=== PATIENT | female | born 1955 | race Caucasian/White ===

== ENCOUNTER 2016-11-13 02:00 | Inpatient (IN) ==
[2016-11-13 02:58] LABS: MANUAL DIFF NEEDED? NO; URINE CULTURE NEEDED? NO; URINE MICRO REVIEW NEEDED? NO; URINE SOURCE CLEAN CATCH
[2016-11-13 03:00] LABS: BASO% 0.2 % (0.0-0.8); EOS# 0.02 X1000 (0.0-0.7); EOS% 0.2 % (0.0-10.0); HEMATOCRIT 41.4 % (37.0-47.0); HEMOGLOBIN 14.1 g/dL (12.0-16.0); IMM GRAN# 0.02 X1000 (0.0-0.04); IMM GRAN% 0.2 % (0.0-0.5); LYMPH# 2.08 X1000 (1.2-3.4); LYMPH% 16.4 % (20.5-51.1); MCH 31.4 PG (27-31); MCHC 34.1 g/dL (33-37); MCV 92.2 FL (81-99); MONO# 1.62 X1000 (0.11-0.59); MONO% 12.8 % (1.7-9.3); MPV 9.6 FL (7.4-10.4); NEUT% 70.2 % (42.2-75.2); PLT 350 X1000 (130-400); RBC 4.49 XMIL (4.2-5.4)
[2016-11-13 03:02] LABS: BILIRUBIN URINE NEGATIVE (NEGATIVE); BLOOD URINE NEGATIVE (NEGATIVE); COLOR YELLOW; GLUCOSE URINE NEGATIVE (NEGATIVE); LEUKOCYTES URINE NEGATIVE (NEGATIVE); NITRITE URINE NEGATIVE (NEGATIVE); PROTEIN URINE NEGATIVE (NEGATIVE); SP GRAVITY URINE 1.015; TURBIDITY URINE CLEAR (CLEAR); UROBILINOGEN URINE NORMAL (NORMAL)
[2016-11-13 03:03] LABS: UR EPITHELIAL CELLS <10 /HPF (<10); URINE BACTERIA NEGATIVE /HPF; URINE RBC <10 /HPF (<10); URINE WBC <10 /HPF (<10)
[2016-11-13 03:19] LABS: AGAP 15; ALBUMIN 3.8 g/dL (3.5-5.0); ALKALINE PHOSPHATASE 81 U/L (32-104); AMYLASE 40 U/L (20-200); BUN 12 mg/dL (8-22); CALCIUM 9.5 mg/dL (8.8-10.2); CHLORIDE 98 mmol/L (98-107); COSMO 276; GOT 32 U/L (10-30); GPT 19 U/L (10-36); LIPASE 26 U/L (13-60); POTASSIUM 4.5 mmol/L (3.5-5.1); SODIUM 138 mmol/L (136-145); TCO2 25 mmol/L (25-35); TOTAL PROTEIN 7.5 g/dL (6.3-8.3)
[2016-11-13] MEDS ORDERED: MORPHINE IV ONE ×2 (03:47→06:30)
[2016-11-13] MEDS ORDERED: NS 1,000 ML IV SCH (03:47)
[2016-11-13] MEDS: ZOFRAN IV ONE (04:07)
[2016-11-13] MEDS ORDERED: NS 1,000 ML IV ONE ×2 (04:34→04:36)
--- NOTE | 2016-11-13 04:40 | PROVIDER DOCUMENTATION ---
HPI-Abdominal Pain/GI Problem - General Chief Complaint: Abdominal Pain Stated Complaint: ABD/FLANK PAIN Time Seen by Provider: 11/13/16 02:59 Source: patient Allergies/Adverse Reactions: Patient Allergies Allergy/AdvReac Type Severity Reaction Status Date / Time metoclopramide HCl * AdvReac Unknown Verified 11/13/16 02:56 [From Reglan] promethazine HCl * AdvReac Unknown Verified 11/13/16 02:56 [From Phenergan] Home Medications: Home Medication List Medication Instructions Recorded Confirmed Last Taken Type Sucralfate [Carafate] 1 gm PO BID 09/10/15 11/13/16 11/12/16 History Hydrochlorothiazide 12.5 mg PO DAILY 11/13/16 11/13/16 11/12/16 History - History of Present Illness-ABD Nature of Presenting Problems: 61 yo WF was brought to ER by family with left and right lower abdominal pain. She has a history of bowel problems including including a best I can volvulus as best I can tell. She also reports issues of malnutrition. Abdominal Pain Onset Location: reports: RLQ, LLQ Quality of Pain: reports: sharp Severity in ED: reports: moderate Onset/Duration: reports: 24 hours ago Timing: reports: still present Activities at Onset: reports: light activity Modifying Factors: improves with: nothing Associated Symptoms: reports: fever/chills, loss of appetite Last BM: unsure # of Diarrhea Episodes: 0 Rectal Pain: reports: none # of Vomiting Episodes: 0 Bruising or Bleeding Gums?: No Similar Symptoms Previously?: No Recently seen or treated by another doctor?: No Review of Systems - Adult - REVIEW OF SYSTEMS - ADULT Constitutional: reports: see HPI, chills, weight loss Eyes: reports: no symptoms reported Ears, Nose, Mouth & Throat: reports: no symptoms reported Cardiovascular: reports: no symptoms reported Respiratory: reports: chronic cough, dyspnea on exertion Gastrointestinal: reports: see HPI Genitourinary: reports: no symptoms reported Musculoskeletal: reports: no symptoms reported Integumentary: reports: no symptoms reported Neurological: reports: no symptoms reported Psychiatric: reports: no symptoms reported Endocrine: reports: no symptoms reported Hematologic/Lymphatic: reports: no symptoms reported Past History - Adult - PAST MEDICAL HISTORY-ADULT Review of Records: reports: Old Records Reviewed, Nursing Assessment Review, Medications Reviewed Major Childhood Illnesses: reports: denies history Cardiovascular: reports: palpitations (SVT's and PVC's) Respiratory: reports: denies history Gastrointestinal: reports: other (gastroparesis) Obstetrical/Gynecological: reports: denies history Genitourinary: reports: denies history Musculoskeletal: reports: neck/back injury Neurological: reports: denies history Psychiatric: reports: other (ADHD) Endocrine/Immune: reports: denies history Other Conditions: reports: denies history - PRIOR SURGERIES/PROCEDURES Surgical/Procedure History: reports: cholecystectomy, hysterectomy, bowel surgery, other (rhinoplasty) - IMMUNIZATION STATUS Childhood Immunizations: NUTD Flu Vaccine: NUTD - FAMILY HISTORY Family History: reviewed, not pertinent Physical Exam-General - PHYSICAL EXAM-ADULT Initial Vital Signs Reviewed: Yes - CONSTITUTIONAL General Appearance: mild distress - EYES Eyes: PERRL/EOMI, pale conjunctivae - HEAD, EARS, NOSE, MOUTH & THROAT HENMT: normocephalic/atraumatic, moist mucous membranes - NECK Neck: non-tender, full range of motion - RESPIRATORY Respiratory: chest non-tender, lungs clear, normal breath sounds - CARDIOVASCULAR Cardiovascular: normal peripheral pulses, regular rate, rhythm, no edema, no gallop, no murmur - GASTROINTESTINAL (ABDOMEN) Abdominal Exam: normal bowel sounds, guarding, tenderness - LYMPHATIC Lymphatic: no adenopathy - MUSCULOSKELETAL Back Exam: normal inspection Extremity: non-tender Peripheral Pulses: radial (R): 3+, radial (L): 3+ - SKIN Integumentary: normal color, normal turgor - NEUROLOGIC Neurologic: grossly normal - PSYCHIATRIC Psych/Mental Status: normal mood/affect Progress - PLAN OF CARE/RESULTS Progress/Plan/Lab Results: Vital Signs - 8 hr 11/13/16 02:03 Temperature 98.2 F Pulse Rate 104 H Respiratory Rate 22 Blood Pressure 141/77 O2 Sat by Pulse Oximetry 98 Laboratory Results - last 24 hr 11/13/16 11/13/16 11/13/16 02:45 02:45 02:45 WBC 12.70 H RBC 4.49 Hgb 14.1 Hct 41.4 MCV 92.2 MCH 31.4 H MCHC 34.1 RDW Std Deviation 12.8 Plt Count 350 MPV 9.6 Immature Gran % (Auto) 0.2 Neut % (Auto) 70.2 Lymph % (Auto) 16.4 L Major % (Auto) 12.8 H Eos % (Auto) 0.2 Baso % (Auto) 0.2 Immature Gran # (Auto) 0.02 Neut # (Auto) 8.93 H Lymph # (Auto) 2.08 Major # (Auto) 1.62 H Eos # (Auto) 0.02 Baso # (Auto) 0.03 Sodium 138 Potassium 4.5 Chloride 98 Carbon Dioxide 25 Anion Gap 15 BUN 12 Creatinine 0.8 Estimated GFR/1.73 m2 > 60 BUN/Creatinine Ratio 15 Glucose 109 H Calculated Osmolality 276 Calcium 9.5 Total Bilirubin 1.10 H AST 32 H ALT 19 Alkaline Phosphatase 81 Total Protein 7.5 Albumin 3.8 Globulin 3.7 Albumin/Globulin Ratio 1.0 Amylase 40 Lipase 26 Urine Source CLEAN CATCH Urine Color YELLOW Urine Turbidity CLEAR Urine pH 7.0 Ur Specific [place] 1.015 Urine Protein NEGATIVE Ur Glucose (Stick) NEGATIVE Ur Ketones (Stick) NEGATIVE Urine Blood NEGATIVE Urine Nitrite NEGATIVE Urine Bilirubin NEGATIVE Urobilinogen Dipstick NORMAL Urine Leukocytes NEGATIVE Urine WBC (Auto) <10 Urine RBC (Auto) <10 U Epithel Cells (Auto) <10 Urine Bacteria (Auto) NEGATIVE Orders Category Date Time Status Saline Loc DIRECTED Care 11/13/16 02:14 Active NPO Diet 11/13/16 02:[address] ABD/PELVIS W/ IV CONT ONLY [CT] Stat Exams 11/13/16 03:46 Taken AMYLASE [CHEM] Stat Lab 11/13/16 02:45 Completed CBC WITH ELECTRONIC DIFF [HEME] Stat Lab 11/13/16 02:45 Completed COMPREHENSIVE METABOLIC PANEL [CHEM] Stat Lab 11/13/16 02:45 Completed LIPASE [CHEM] Stat Lab 11/13/16 02:45 Completed URINALYSIS W/POSS RFLX CULT [URINALYSIS] Stat Lab 11/13/16 02:45 Completed 0.9% Sodium Chloride Inj [Ns] 1,000 ml Med 11/13/16 03:47 Discontinued IV 150 mls/hr Morphine Med 11/13/16 03:47 Discontinued 4 mg IV NOW ONE Ondansetron [Zofran] Med 11/13/16 03:48 Discontinued 8 mg IV NOW ONE Result Diagrams: 11/13/16 02:45 11/13/16 02:45 - XRAY 1 XRAY Study: Chest Impression: Normal - CT/MRI 1 Impression: Abnormal, See EMR Report (Diverticulitis) - CONSULTS/PCP/HOSPITALIST Notification #1 *Consult/PCP/Hospitalist*: Dr [email or web address] Time Discussed: 05:30 Reason/Comments: Defer admission to the day shift Departure - Departure Time of Disposition Decision: 06:02 DIAGNOSIS: Diverticulitis large intestine w/o perforation or abscess w/o bleeding Disposition: ADMITTED INPATIENT 09 Certified Medical Emergency: Emergent Condition: Fair Referrals and Follow-Ups: Zi Bob MD [Primary Care Provider] - - Critical Care Note Total Time (mins): 30 Critical Care Statement: This patient required my direct personal management to treat or rule out processes, the absence of which, could potentiallly result in sudden, clinically significant life or limb threatening deterioration.
[2016-11-13] MEDS: FLAGYL 500 MG/NS 500 MG/100 ML IVPB IV SCH ×4 (07:23→20:22)
[2016-11-13] MEDS: ZOSYN 3.375 GM/NS 3.375 GM/50 ML IVPB IV SCH ×5 (08:34→17:44)
--- NOTE | 2016-11-13 09:23 | HISTORY AND PHYSICAL ---
HISTORY OF PRESENT ILLNESS: She stated that she has had pain in the right side now for the last 2 days. Yesterday, it was getting more intense and finally she came to the emergency room about 2:30 this morning. She has had fever and chills and a lot of abdominal cramping. PAST HISTORY: She has an extensive history including 1. History of migraines. 2. Restless leg syndrome. 3. Gastroparesis. 4. Gastroesophageal reflux. 5. Fibromyalgia. 6. Hyperactivity disorder. 7. She has supraventricular tachycardia, and it has usually been related to when her electrolytes were off by her report. PAST SURGICAL HISTORY: 1. She has had Sujata fundoplication. The first one was done, I think, by Dr. Deyvi Valadez. I think it had to be redone and then she had gastroparesis. It is my understanding that she had some partial gastrectomy; I am not sure about that. 2. Heart catheterization in 2013. Normal coronaries. 3. Cholecystectomy. 4. Bowel obstruction, status post exploratory laparotomy, release of small bowel obstruction. This was done by Dr. Timmy Lr. 5. Hysterectomy. 6. Bilateral oophorectomy. 7. Hormone replacement. MEDICATIONS: 1. Mediplex 0.5 mg a day. 2. Premarin 0.625 mg a day. 3. 36 mg a day. 4. Metoprolol 12.5 b.i.d. 5. She is also on Sucralfate 1 g a day. ALLERGIES: Metoclopramide and promethazine. SOCIAL HISTORY: The patient is , 12 kids - all of them are grown and they are on their own except the last one has been living with them. is at the bedside. Negative for alcohol or tobacco. REVIEW OF SYSTEMS: No weight gain or loss. No fever or chills. HEENT unremarkable. Respiratory: No increased work of breathing or dyspnea. Cardiovascular: No chest pain or tachy palpitation. GI and as noted above. Right-sided lower abdominal pain. PHYSICAL EXAMINATION: VITAL SIGNS: Temperature 98.1 degrees, pulse 98, respirations 20, blood pressure 127/74. EYES: Pupils are equal and round. LUNGS: Clear in all lung hess. CARDIOVASCULAR: Regular rhythm and rate without murmur or S3. ABDOMEN: She has some tenderness in the right lower quadrant which is mild, but she is having quite a bit of pain there subjectively. EXTREMITIES: Without clubbing, cyanosis, or edema. LABORATORY DATA: White count 12,700. Hematocrit 41, platelet count 350,000. Sodium 138, potassium 4.5, chloride 98, bicarb 25. BUN 12, creatinine 0.8, blood sugar 109. Liver function unremarkable. Urinalysis was unremarkable. ASSESSMENT AND PLAN: 1. She had a CT of her abdomen that shows diverticulitis. Plan: I am going to put her Cipro and Flagyl, and we will see if we can give her the Cipro and start off with IV. We will give her some normal saline at 85 mL an hour and see if we can decrease the inflammation and active infection. 2. History of Sujata fundoplication. History of gastroparesis, aware. 3. She has had episodes of supraventricular tachycardia in the past. Her electrolytes look okay. Normal sinus rhythm at present time. Put her on a monitor. 4. History of Attention Deficit Hyperactivity Disorder. Continue her current medications. We will check electrolytes, magnesium, thyroid B12, and folate in the morning. cc: Kimani Elizalde MD
--- NOTE | 2016-11-13 10:03 | Diag Imaging Result Document ---
PROCEDURE NAME: CT ABD/PELVIS W/ IV CONT ONLY - 11/13/2016 CT ABDOMEN AND PELVIS WITH INTRAVENOUS CONTRAST: COMPARISON: 03/17/2014. FINDINGS: There has been a gastric bypass procedure and the gallbladder has been removed. Marked dilatation to the common bile duct measuring at least 16 mm. I believe there is mild fatty infiltration of the liver, and the liver is prominent. Normal spleen and adrenal glands. There is fatty infiltration of the pancreas. Normal enhancement of the kidneys. Normal aorta. No bowel obstruction. There are inflammatory changes about the sigmoid colon. There are multiple diverticula in this location. Wall thickening is present. No free air. No abscess. The urinary bladder is moderately distended and appears normal. The uterus has been removed. IMPRESSION: 1. Sigmoid diverticulitis. 2. Cholecystectomy with gastric bypass. 3. Prominent liver with fatty infiltration. 4. Hysterectomy. A preliminary report was given at 5:13 a.m.
[2016-11-13] MEDS: CARAFATE PO SCH ×2 (11:30→20:23)
[2016-11-13] MEDS: NS + KCL 20 MEQ 1,000 ML IV SCH (11:31)
[2016-11-13] MEDS: MORPHINE IV PRN ×3 (11:32→20:22)
[2016-11-14] MEDS: NS + KCL 20 MEQ 1,000 ML IV SCH ×3 (01:06→21:34)
[2016-11-14] MEDS: MORPHINE IV PRN ×6 (01:06→22:59)
[2016-11-14] MEDS: ZOSYN 3.375 GM/NS 3.375 GM/50 ML IVPB IV SCH ×4 (01:06→21:34)
[2016-11-14] MEDS: FLAGYL 500 MG/NS 500 MG/100 ML IVPB IV SCH ×3 (04:05→19:29)
[2016-11-14 05:50] LABS: MANUAL DIFF NEEDED? NO
[2016-11-14 05:57] LABS: BASO% 0.3 % (0.0-0.8); EOS# 0.05 X1000 (0.0-0.7); EOS% 0.7 % (0.0-10.0); HEMATOCRIT 37.8 % (37.0-47.0); HEMOGLOBIN 12.6 g/dL (12.0-16.0); IMM GRAN# 0.02 X1000 (0.0-0.04); IMM GRAN% 0.3 % (0.0-0.5); LYMPH# 1.11 X1000 (1.2-3.4); LYMPH% 15.1 % (20.5-51.1); MCH 31.7 PG (27-31); MCHC 33.3 g/dL (33-37); MONO# 0.99 X1000 (0.11-0.59); MONO% 13.4 % (1.7-9.3); MPV 9.7 FL (7.4-10.4); NEUT% 70.2 % (42.2-75.2); PLT 277 X1000 (130-400); RBC 3.98 XMIL (4.2-5.4)
[2016-11-14 06:15] LABS: AGAP 11; ALBUMIN 3.3 g/dL (3.5-5.0); ALKALINE PHOSPHATASE 129 U/L (32-104); BUN 8 mg/dL (8-22); CALCIUM 8.4 mg/dL (8.8-10.2); CHLORIDE 101 mmol/L (98-107); COSMO 276; GOT 117 U/L (10-30); GPT 78 U/L (10-36); MAGNESIUM 1.8 mg/dL (1.5-2.7); POTASSIUM 3.9 mmol/L (3.5-5.1); SODIUM 139 mmol/L (136-145); TCO2 27 mmol/L (25-35); TOTAL BILIRUBIN 1.55 mg/dL (0.20-1.00); TOTAL PROTEIN 6.9 g/dL (6.3-8.3)
[2016-11-14 06:42] LABS: FREE T4 1.28 ng/dL (0.93-1.70)
[2016-11-14] MEDS: CARAFATE PO SCH ×2 (10:05→21:34)
[2016-11-14] MEDS: ZOFRAN IV ONE (10:13)
[2016-11-14] MEDS: ZOFRAN IV PRN ×3 (14:04→22:59)
--- NOTE | 2016-11-14 14:55 | PROGRESS NOTE ---
DATE: 11/14/2016 SUBJECTIVE: Ms. Bell does feel better. She is having nausea though so will add some Zofran. She is allergic to Metoclopramide and also promethazine. But she does feel better. The pain has lessened in the right lower quadrant. OBJECTIVE: Vital signs: Afebrile, temp 98.4 degrees, pulse 86, respirations 16, blood pressure 117/66. Lungs: Clear in all lung hess. Cardiovascular: Regular rhythm and rate without murmur or S3. Abdomen: Soft. She has mild tenderness in the right lower quadrant. Intake and output: Urine output is over 2 L. LAB: White count 7,370 which is down from yesterday, hematocrit 37, platelet count 277,000. Electrolytes: Sodium 139, potassium 3.9, chloride 101, bicarb 27, BUN 8, creatinine 0.7, total bilirubin was 1.55, AST 117, ALT 78, alkaline phosphatase 129. ASSESSMENT AND PLAN: 1. Diverticulitis. Continue present antibiotics, using Zosyn and Flagyl. She is improving. We will add Zofran for her nausea. 2. History of Sujata fundoplication and gastroparesis, aware. 3. She has had a history of supraventricular tachycardia before. Monitor. Hemodynamics remain stable. Continue present orders. Add Zofran. cc: Kimani Elizalde MD
[2016-11-15] MEDS: FLAGYL 500 MG/NS 500 MG/100 ML IVPB IV SCH ×4 (01:32→18:28)
[2016-11-15] MEDS: ZOFRAN IV PRN ×5 (03:01→22:49)
[2016-11-15] MEDS: MORPHINE IV PRN ×5 (03:01→22:48)
[2016-11-15] MEDS: ZOSYN 3.375 GM/NS 3.375 GM/50 ML IVPB IV SCH ×4 (03:02→21:52)
[2016-11-15 07:09] LABS: MANUAL DIFF NEEDED? NO
[2016-11-15 07:13] LABS: BASO% 0.4 % (0.0-0.8); EOS# 0.12 X1000 (0.0-0.7); EOS% 2.4 % (0.0-10.0); HEMATOCRIT 36.7 % (37.0-47.0); LYMPH# 0.96 X1000 (1.2-3.4); LYMPH% 19.2 % (20.5-51.1); MCHC 32.7 g/dL (33-37); MCV 94.8 FL (81-99); MONO# 0.65 X1000 (0.11-0.59); MPV 9.7 FL (7.4-10.4); PLT 255 X1000 (130-400); RBC 3.87 XMIL (4.2-5.4)
[2016-11-15 07:38] LABS: AGAP 14; ALBUMIN 3.2 g/dL (3.5-5.0); ALKALINE PHOSPHATASE 104 U/L (32-104); BUN 7 mg/dL (8-22); CALCIUM 8.4 mg/dL (8.8-10.2); CHLORIDE 102 mmol/L (98-107); COSMO 280; GOT 46 U/L (10-30); GPT 49 U/L (10-36); POTASSIUM 4.1 mmol/L (3.5-5.1); SODIUM 141 mmol/L (136-145); TCO2 25 mmol/L (25-35); TOTAL BILIRUBIN 0.73 mg/dL (0.20-1.00); TOTAL PROTEIN 6.7 g/dL (6.3-8.3)
[2016-11-15] MEDS: NS 1,000 ML IV SCH (07:44)
[2016-11-15] MEDS: CARAFATE PO SCH ×2 (09:24→21:52)
--- NOTE | 2016-11-15 14:57 | PROGRESS NOTE ---
DATE: 11/15/2016 SUBJECTIVE: Ms. Bell is feeling better. The pain is diminished in the right side. Still has a good deal nausea. OBJECTIVE: Vital signs: Temp 97.8 degrees, pulse 72, respirations 14, blood pressure 118/59. HEENT: Pupils are equal, round. Lungs: Clear in all lung hess. Cardiovascular: Regular rhythm and rate without murmur or S3. Abdomen: Soft. Skin: Warm and dry. Intake and output: Urine output well over 3 L. LAB: Reviewed. White count 5,000, hematocrit 36, platelet count 255,000. Sodium 141, potassium 4.1, chloride 102, BUN 7, creatinine 0.7. Liver functions are coming down nicely. AST was 46, ALT was 49. ASSESSMENT AND PLAN: 1. Diverticulitis. Right-sided discomfort. Continue her Zosyn and Flagyl. 2. History Sujata fundoplication. History gastroparesis 3. She has had a previous history of supraventricular tachycardia. We will see if we can advance her to a soft GI diet. Clinically improving. cc: Kimani Elizalde MD
--- NOTE | 2016-11-15 22:26 | CONSULTATION ---
DATE OF CONSULTATION: 11/15/2016 REASON FOR CONSULTATION: Evaluation of patient with acute diverticulitis and gastroparesis. HISTORY OF PRESENT ILLNESS: This is a 61-year-old lady known to me from previous encounters. The patient has a history of diverticulosis of the colon for a long time. She also has significant gastroparesis. She started having right lower quadrant pain about 2 days prior to admission and became much worse on the day before the admission. Eventually she came to the ER in the middle of the night. She denied any fever or chills. She was not having any bowel movement for a few days. The patient has undergone a CT scan of the abdomen and pelvis, and it showed acute sigmoid diverticulitis. The patient is kept in the hospital with IV antibiotics and IV fluids. She is able to tolerate a clear liquid diet at this point. In the beginning she was kept NPO. After having laxatives her bowel started moving and she started feeling better. She also had some nausea and vomiting. According to her, her gastroparesis is manageable except when she becomes constipated and when it backs up she gets emesis. PAST MEDICAL HISTORY: Years ago when I did her 1st esophagogastroduodenoscopy she had a large hiatus hernia. She was referred at that time to Dr. Eden who did a fundoplication following which she developed significant gastroparesis. A year later the patient had seen Dr. Valadez who reversed that fundoplication. Her last esophagogastroduodenoscopy and colonoscopy were on 10/05/2013. She had mild reflux esophagitis, still a small hiatus hernia present, fundoplication looked fairly good, there was still food in the stomach but very much less. She also had mild gastritis. The patient had a colonoscopy done at the same time. She had mild diverticulosis of the sigmoid colon and descending colon. The patient has not seen me since 2013. Her other previous medical history includes fibromyalgia, migraine headaches and hypertension. She also has gastroesophageal reflux, rest restless legs syndrome, hyperactivity disorder and supraventricular tachycardia. PAST SURGICAL HISTORY: Sujata fundoplication, cholecystectomy, last cardiac catheterization in 2013 was with normal coronaries. She also had an exploratory laparotomy with lysis of adhesions by Dr. Timmy Lr last year, hysterectomy and bilateral oophorectomy. MEDICATIONS: Mediplex 0.5 mg a day, Premarin 0.625 mg daily, metoprolol 12.5 mg b.i.d., sucralfate 1 g daily q.i.d. ALLERGIES: Metoclopramide and promethazine. SOCIAL HISTORY: She has 2 kids, a daughter who resides in [place] and she has a son who is grown who also has a son who she is taking care of. She is and lives with her . She does not abuse alcohol or tobacco. FAMILY HISTORY: No history of any colon cancer in the family. REVIEW OF SYSTEMS: Appetite had been poor. There is some nausea present right now. She is tolerating a clear liquid diet. There is no fever or chills. She has some bowel movements present. The abdominal pain is much improved. PHYSICAL EXAMINATION: General: The patient is alert and oriented x3. Vital Signs: Temperature is 97.8 degrees, pulse rate is 72 per minute, respiratory rate is 14, blood pressure is 118/59. Skin: Warm and dry. Mucous membranes are moist. Neck: Supple. There is no thyromegaly. Cardiac: Both heart sounds are heard. Rhythm is regular. No murmur. Lungs: Clear to percussion and auscultation. Abdomen: Not protuberant. There is a midline scar in the epigastric area and a lower abdominal midline scar present which is from last year's intestinal obstruction surgery. Hysterectomy scar is in the suprapubic region and is transverse. Abdomen is otherwise soft with tenderness in the right lower quadrant and mild tenderness in the left lower quadrant. Bowel sounds are heard. Extremities: Free of any edema. No masses felt. LABORATORY DATA: On entry WBC count was elevated at 12.70, today it is 5. Hemoglobin is 12, hematocrit 36.7, platelet count is 255,000. Sodium is 141, potassium 4.1, chloride 102, CO2 is 25, BUN is 14, creatinine 0.7, glucose is 111. was elevated to 117 and it is down to 46 today. ALT was 78, it is down to 49 today. The albumin is 3.2. Vitamin B12 was more than 2000. TSH is 0.38. Free T4 is 1.28. CT scan revealed acute diverticulitis of the sigmoid colon and fatty infiltration of the liver and cholecystectomy. RECOMMENDATIONS: This patient has mild acute diverticulitis and she is recovering from it. The gastroparesis is stable at this point. We will continue monitoring the patient and on seeing her for followup in the office we will decide about whether she needs any procedures. cc: MD Kimani Villanueva MD
[2016-11-16] MEDS: FLAGYL 500 MG/NS 500 MG/100 ML IVPB IV SCH ×2 (00:58→07:07)
[2016-11-16] MEDS: MORPHINE IV PRN ×4 (02:54→20:38)
[2016-11-16] MEDS: ZOFRAN IV PRN ×4 (02:54→20:38)
[2016-11-16] MEDS: NS 1,000 ML IV SCH ×4 (03:38→20:32)
[2016-11-16] MEDS: ZOSYN 3.375 GM/NS 3.375 GM/50 ML IVPB IV SCH ×2 (03:39→12:44)
--- NOTE | 2016-11-16 11:24 | PROGRESS NOTE ---
DATE: 11/16/2016 SUBJECTIVE: This patient is admitted with acute diverticulitis of the sigmoid colon. She is doing much better today, and her diet had been advanced to GI soft diet. She seems to be tolerating it, although after eating she got some discomfort in the lower abdomen and also did not have any bowel movement like she expected, but on the whole she is doing much better. OBJECTIVE: Vital signs: Temperature is 97.3 degrees, pulse is 66 per minute, respiratory rate is 14, blood pressure is 108/68. General: The physical examination is unremarkable. IMPRESSION: 1. Resolving acute sigmoid diverticulitis. 2. Gastroparesis. RECOMMENDATION: Continue with a GI soft diet. I did discuss with her about eating only a small amount of food and also drinking a lot of liquids until she started having good bowel movements and the pain is totally and completely gone. If she is stable enough to be discharged, she could be discharged today to be seen by me in the office in about 2-3 weeks time. cc: MD Zi Khan MD
[2016-11-16] MEDS: CARAFATE PO SCH ×2 (11:56→20:32)
--- NOTE | 2016-11-16 16:21 | PROGRESS NOTE ---
DATE: 11/16/2016 SUBJECTIVE: Today, Ms. Bell refers to be doing fine. Still continues to have some pain in the right side of the abdomen. OBJECTIVE: Vital Signs: Stable. Blood pressure is 121/69, pulse of 61, respirations 14, and temperature is 97.3 degrees. General: Ms. Bell is a 61-year-old female. She was in bed. She did not seem to be in any remarkable distress. HEENT: Mucosa is pink and moist. Anicteric. Acyanotic. Neck: Supple. Chest: Good air entry bilaterally. No crepitations. No rhonchi. Cardiovascular: Regular rate and rhythm. Abdomen: Soft. Mildly tender in the lower abdomen, more so to the left. Central Nervous System: Patient is alert and oriented x4. There is no focal neurological deficit. LABORATORY DATA: None for today. The vitamin D level is 80.6, which is high level, almost to 2 toxicity. CURRENT MEDICATIONS: 1. Flagyl. 2. Zosyn. ASSESSMENT: 1. Sigmoid diverticulitis. 2. History of gastroparesis. 3. Previous history of supraventricular tachycardia. 4. Borderline high vitamin D levels. 5. Transaminitis, improving. 6. Fatty liver disease, likely the cause of the transaminitis. In general, I think Ms. Bell is doing a whole lot better. She is currently on Zosyn and metronidazole. I will switch this to p.o., since she is tolerating her diet. She has not had any bowel movement, according to her, and I think it is also driving some of her abdominal discomfort. I will give her MiraLAX to help with bowel movement, encourage her to move around, and hopefully will be able to discharge her in the morning. cc: Bar Mcfarland MD
[2016-11-16] MEDS: FLAGYL PO SCH (16:41)
[2016-11-16] MEDS: LEVAQUIN PO SCH (19:00)
[2016-11-17] MEDS: MORPHINE IV PRN ×2 (00:30→06:27)
[2016-11-17] MEDS: ZOFRAN IV PRN ×2 (00:31→06:27)
[2016-11-17] MEDS: FLAGYL PO SCH ×2 (00:31→08:17)
[2016-11-17] MEDS: NS 1,000 ML IV SCH ×2 (08:14→11:11)
[2016-11-17] MEDS: CARAFATE PO SCH (08:17)
[2016-11-17] MEDS: LEVAQUIN PO SCH (08:17)
[2016-11-17 12:00] VITALS: BP 119/53
--- NOTE | 2016-11-17 12:04 | PROGRESS NOTE ---
DATE: 11/17/2016 This patient is admitted with acute diverticulitis. She has significantly improved with no significant abdominal pain. She is tolerating a GI soft diet at this point and her gastroparesis is also under control. OBJECTIVE: Vital Signs: The temperature is 98.6 degrees, pulse is 59 per minute, respiratory rate is 20, blood pressure is 116/64. General examination and abdominal examination: Negative. IMPRESSION: Diverticulosis resolving. RECOMMENDATION: The patient should be on a low residue diet for about 2 weeks' time and see me back in the office in about 2-3 weeks' time on discharge from the hospital. As far as GI is concerned, she could be discharged home.
--- NOTE | 2016-11-18 13:32 | DISCHARGE SUMMARY ---
ADMISSION DATE: 11/13/2016 DISCHARGE DATE: 11/17/2016 CONSULTATIONS: Sunny Rojas MD with Gastroenterology. PERTINENT PROCEDURES: Abdomen and pelvis CT showed sigmoid diverticulitis, cholecystectomy and gastric bypass. Prominent liver with fatty infiltration. Hysterectomy. DISCHARGE DIAGNOSES: 1. Sigmoid diverticulitis, followed by Dr. Rojas. Patient has been converted from IV to p.o. antibiotics. She is tolerating a diet. 2. Gastroparesis history. 3. History of SVT. 4. Borderline high vitamin D levels. 5. Transaminitis, improving. 6. Fatty liver disease, likely because of transaminitis. HOSPITAL COURSE: Briefly, Ms Bell is a 61-year-old female has a past medical history of migraines, restless legs syndrome, gastroparesis, GERD, fibromyalgia, hyperactivity disorder, SVT. She reported to the ED with the pain in her right side of her abdomen for 2 days. She came to the emergency room where she had a CT of her abdomen that showed diverticulitis. She was started on IV antibiotics as well as normal saline with a GI consult. Patient was advanced to a GI soft diet. It was discussed with her by GI about only eating a small amount of food and also drinking a lot a liquid until she started having good bowel movements, and she will follow up with Dr. Rojas in 2-3 weeks time. She was transitioned from IV to p.o. antibiotics. She will remain on a low residue diet for 2 weeks. Vital signs at time of her discharge, temperature is 98.3 degrees, heart rate 72, respirations 20, blood pressure 119/53, O2 is 96% on room air. DISCHARGE DIET: GI soft low residue. DISCHARGE MEDICATIONS: 1. Hydrochlorothiazide 12.5 mg p.o. daily. 2. Levaquin 250 mg p.o. daily. 3. Flagyl 250 mg p.o. q.8 hours. 4. Carafate 1 g p.o. b.i.d. FOLLOWUP: Patient is being discharged home. She will follow up with Dr. Rojas in 2 weeks as well as her primary care physician, Dr. Zi Bob. Patient will return to the ED for any worsening symptoms. DISCHARGE TIME: 30 minutes. Dictated by ZI Sher for Bar Mcfarland MD cc: MD Zi Khan MD
== END 2016-11-17 15:58 | disposition home or self-care (01) ==
LOC: ED 02:00 → SUATTDRO 02:01 → 4N 09:34
PROVIDERS: ATTEND Internal Medicine

== ENCOUNTER 2016-11-22 14:54 | Inpatient (IN) ==
[2016-11-22 15:35] LABS: MANUAL DIFF NEEDED? NO
[2016-11-22 15:44] LABS: BASO% 0.4 % (0.0-0.8); EOS# 0.07 X1000 (0.0-0.7); HEMATOCRIT 44.6 % (37.0-47.0); HEMOGLOBIN 15.3 g/dL (12.0-16.0); LYMPH# 1.99 X1000 (1.2-3.4); LYMPH% 28.3 % (20.5-51.1); MCH 31.4 PG (27-31); MCHC 34.3 g/dL (33-37); MCV 91.6 FL (81-99); MONO% 14.2 % (1.7-9.3); NEUT% 56.1 % (42.2-75.2); PLT 351 X1000 (130-400); RBC 4.87 XMIL (4.2-5.4)
[2016-11-22 15:48] LABS: INR 0.96; PROTIME 10.1 Seconds (9.2-11.7); PTT 26.6 Seconds (22.0-36.0)
[2016-11-22 15:58] LABS: AGAP 17; ALBUMIN 4.2 g/dL (3.5-5.0); ALKALINE PHOSPHATASE 98 U/L (32-104); BUN 11 mg/dL (8-22); CALCIUM 10.3 mg/dL (8.8-10.2); CHLORIDE 94 mmol/L (98-107); COSMO 273; GOT 21 U/L (10-30); GPT 19 U/L (10-36); MAGNESIUM 1.8 mg/dL (1.5-2.7); POTASSIUM 3.9 mmol/L (3.5-5.1); SODIUM 137 mmol/L (136-145); TCO2 26 mmol/L (25-35); TOTAL BILIRUBIN 0.99 mg/dL (0.20-1.00); TOTAL PROTEIN 8.1 g/dL (6.3-8.3)
[2016-11-22 16:11] LABS: AMYLASE 48 U/L (20-200); LIPASE 42 U/L (13-60)
[2016-11-22] MEDS: DILAUDID IV PRN ×2 (16:49→21:10)
[2016-11-22] MEDS: ZOFRAN IV PRN ×2 (16:50→21:10)
[2016-11-22] MEDS: NS 1,000 ML IV SCH (16:50)
[2016-11-22] MEDS: SODIUM CHLORIDE 0.9% INJ SCH (16:58)
[2016-11-22] MEDS: APRESOLINE IV SCH ×2 (16:58→21:11)
[2016-11-22] MEDS: PROTONIX IV SCH (16:58)
--- NOTE | 2016-11-22 22:38 | HISTORY AND PHYSICAL ---
CHIEF COMPLAINT: Epigastric and right upper quadrant pain that started this a.m. HPI: Ms Bell is a 61-year-old female who was recently discharged from the hospital on 11/17/2016 for sigmoid diverticulitis who finished her full course of antibiotics. She also carries a history of migraines, restless legs syndrome, gastroparesis, GERD, fibromyalgia, hyperactivity disorder, SVT also had a Sujata fundoplication. The patient reported this a.m. she woke up, started having some epigastric and right upper quadrant pain that was consistent in nature. She did have waves of nausea and due to her Sujata fundoplication she is not able to throw up. However she did have a couple episodes of dry heaving. She states she has only had a few sips of water today and no food. Nothing relieves or aggravates the pain. The patient went for her followup with Dr. Rojas today. He called the hospitalist for direct admission stating that she needed to have an ERCP done secondary to a stone. She is status post cholecystectomy. He does not do ERCP so we have consulted Dr. Ceja. Laboratory data as well as diagnostics have been ordered. Those are still pending. The patient denies any chest pain. Denies any overt diarrhea just her normal bowel movements. No blood. No shortness of breath. No fever ,no chills. PAST MEDICAL HISTORY: 1. Migraines. 2. Restless legs syndrome. 3. Gastroparesis. 4. A recent sigmoid diverticulitis followed by Dr. Rojas where she finished her full antibiotics of Levaquin and Flagyl. 5. GERD. 6. SVT history. 7. Fatty liver disease. PAST SURGICAL HISTORY: 1. Sujata fundoplication. 2. Heart catheterization in 2013 with normal coronaries. 3. Cholecystectomy. 4. Bowel obstruction status post exploratory laparotomy, release of small-bowel obstruction by Dr. Lr. 5. Hysterectomy. 6. Bilateral oophorectomy. 7. Hormone replacement. HOME MEDICATIONS: They have not been reconciled however her past discharge with hydrochlorothiazide 12.5 mg p.o. daily, Levaquin that patient has finished, Flagyl which patient has finished and Carafate 1 g p.o. b.i.d. ALLERGIES: 1. Reglan unknown reaction. 2. Phenergan with unknown reaction. PHYSICAL EXAMINATION: VITAL SIGNS: Have not been obtained. GENERAL: Ms Bell is a 61-year-old female who is lying in her bed. She is holding her right side guarding in no acute distress. HEENT: Atraumatic, normocephalic. PERRLA. NECK: Supple. Trachea midline. CV: No murmurs, gallops, rubs noted. RESPIRATORY: Lungs sound clear, chest excursion, nonlabored breathing. GI: Soft, it is tender to the epigastric and right upper quadrant. Positive bowel sounds 4 quads. EXTREMITIES: Negative for edema. Bilateral pedal pulses are palpable. NEUROLOGIC: The patient is alert, oriented x4. Follows commands. Moves all extremities LABORATORY AND DIAGNOSTIC DATA: Are pending. REVIEW OF SYSTEMS: Ten-point review of systems complete negative except for those mentioned in HPI. ASSESSMENT AND PLAN: 1. RUQ pain suspected pancreatitis. Questionable need for ERCP. Patient has been to see Dr. Rojas. She was a direct admit from his office. He suggested consulting the supervisor calibration GI for an ERCP secondary to a stone. We will start IV fluids as well as IV antiemetics and IV pain medications. The patient will be held NPO. 2. Hypertension. Ordered hydrochlorothiazide p.r.n. for systolic blood pressure greater than 180. 3. Further recommendation following pending laboratory data, pending diagnostic data and pending physician evaluation. Dictated by ZI Sher for Bar Mcfarland MD cc: Zi Bob MD MTDD
[2016-11-23] MEDS: DILAUDID IV PRN ×7 (01:13→22:53)
[2016-11-23] MEDS: ZOFRAN IV PRN ×6 (01:13→22:53)
[2016-11-23] MEDS: APRESOLINE IV SCH ×5 (04:26→23:16)
[2016-11-23 06:36] LABS: MANUAL DIFF NEEDED? NO
[2016-11-23 06:42] LABS: BASO% 0.4 % (0.0-0.8); EOS# 0.05 X1000 (0.0-0.7); EOS% 1.1 % (0.0-10.0); HEMATOCRIT 40.3 % (37.0-47.0); HEMOGLOBIN 13.4 g/dL (12.0-16.0); LYMPH# 1.38 X1000 (1.2-3.4); LYMPH% 29.7 % (20.5-51.1); MCH 31.1 PG (27-31); MCHC 33.3 g/dL (33-37); MCV 93.5 FL (81-99); MONO# 0.66 X1000 (0.11-0.59); MONO% 14.2 % (1.7-9.3); MPV 10.3 FL (7.4-10.4); NEUT% 54.6 % (42.2-75.2); PLT 278 X1000 (130-400); RBC 4.31 XMIL (4.2-5.4)
[2016-11-23 06:58] LABS: AGAP 12; BUN 11 mg/dL (8-22); CALCIUM 9.3 mg/dL (8.8-10.2); CHLORIDE 98 mmol/L (98-107); COSMO 275; POTASSIUM 4.2 mmol/L (3.5-5.1); SODIUM 138 mmol/L (136-145); TCO2 28 mmol/L (25-35)
[2016-11-23] MEDS: NS 1,000 ML IV SCH ×2 (08:25→16:42)
--- NOTE | 2016-11-23 09:25 | Diag Imaging Result Document ---
PROCEDURE NAME: ABDOMEN/PELVIS W/CONTRAST - 11/22/2016 CT OF THE ABDOMEN WITH INTRAVENOUS AND ORAL CONTRAST: FINDINGS: There is minimal atelectasis in the lung bases. There may be a small hiatal hernia. There may be some mucosal thickening in the distal esophagus. There has been previous fundoplication. There is some fluid/edema around the distal common bile duct and adjacent duodenum. Common bile duct is distended to at least 17 mm. No clearly identifiable etiology is present for this. No calcified stone or definite mass is apparent. The pancreas is largely fatty replaced at least in the head of the pancreas and the tail. The common bile duct is only slightly more distended than on 11/13/2016. The gallbladder is surgically absent. Compared to the previous study, the edema around the distal common bile duct and duodenum was not present previously. The possibility of focal pancreatitis cannot be excluded. Similarly, the possibility of a duodenal ulcer disease should be considered. There is no evidence of free air. There is no evidence of abdominal aortic aneurysm and the mesenteric vessels are patent. The renal arteries are patent in appearance. There is no evidence of hydronephrosis or nephrolithiasis. The spleen is not enlarged. The liver is stable in appearance. The remainder of the small bowel is similar in appearance to the previous study. There is diverticulosis coli, particularly in the descending colon. There is no evidence of retroperitoneal adenopathy. The adrenal glands are not enlarged. CT OF THE PELVIS WITH INTRAVENOUS AND ORAL CONTRAST: The diverticulitis which was previously demonstrated around the sigmoid colon has largely resolved. There is no evidence of residual abscess. There is no evidence of free fluid. The regional skeleton is stable in appearance. IMPRESSION: 1. Worsened biliary dilatation and inflammatory changes around the head of the pancreas and the second portion of the duodenum. The possibility of a stricture, noncalcified bile duct stone, debris, or even a neoplasm in the area of the distal duct or ampulla cannot be excluded. 2. Marked improvement in sigmoid diverticulitis.
--- NOTE | 2016-11-23 14:53 | PROGRESS NOTE ---
DATE: 11/23/2016 SUBJECTIVE: Today Ms. Bell refers to be doing a little better. Continues to have pain especially to the right upper quadrant associated with some nausea but no vomiting. OBJECTIVE: Vital signs: Blood pressure is 114/62, pulse of 60, respirations 20, temperature 97.8 degrees. General: Ms. Bell is a 61-year-old female. She is in bed, no distress. HEENT: Mucosa is pink and moist. Anicteric. Acyanotic. Neck: Supple. Chest: Clear. Cardiovascular: Regular rate and rhythm. Abdomen: Soft. Mildly tender in the right upper quadrant but there is no mass felt. There is an old anterior abdominal wall surgical scar. Extremities: No pedal edema. FINE SANDER: Patient is alert and oriented x4. No focal neurological deficit. LABORATORY DATA: WBC is 4.65, hemoglobin is 13.4, platelet count of 278,000. Sodium is 138, potassium is 4.2, chloride is 98, bicarb is 28. CURRENT MEDICATIONS: Include normal saline at 125 mL/h, Protonix 40 mg IV daily, Zofran 4 mg IV q.4 p.r.n. DIAGNOSTIC STUDIES: A CT scan of the abdomen and pelvis which was done today shows worsening biliary dilation and inflammatory changes around the head of the pancreas and 2nd portion of the duodenum. Possibility of stricture, noncalcified bile duct stone debris, or even neoplasm in the area of the distal duct or ampulla cannot be excluded. ASSESSMENT: 1. Right upper quadrant pain, likely secondary to pancreatic process. CBD dilation which current CT scan seems to be worsening. Not quite sure if this is due to a CBD stone or if there is an underlying stricture versus a mass which needs to be investigated. 2. Sigmoid diverticulitis. This has improved according to the CT scan and patient does not have any more symptoms from that. 3. History of migraine. 4. Gastroparesis in the past. 5. Suspected pancreatitis. The pancreatic enzymes are, however, negative. Patient will be kept NPO. Continue the IV fluids and await GI to evaluate the patient. I think with the CT scan report the patient will eventually need ERCP to know what is going on in the CBD. cc: Bar Mcfarland MD
[2016-11-23] MEDS: PROTONIX IV SCH (16:35)
[2016-11-23] MEDS: SODIUM CHLORIDE 0.9% INJ SCH (16:35)
[2016-11-24] MEDS: DILAUDID IV PRN ×6 (02:25→22:29)
[2016-11-24 03:18] LABS: MANUAL DIFF NEEDED? NO
[2016-11-24 03:21] LABS: BASO% 0.6 % (0.0-0.8); EOS# 0.11 X1000 (0.0-0.7); EOS% 2.1 % (0.0-10.0); HEMATOCRIT 41.8 % (37.0-47.0); HEMOGLOBIN 13.7 g/dL (12.0-16.0); LYMPH% 36.4 % (20.5-51.1); MCH 30.7 PG (27-31); MCHC 32.8 g/dL (33-37); MCV 93.7 FL (81-99); MONO# 0.66 X1000 (0.11-0.59); MONO% 12.6 % (1.7-9.3); NEUT% 48.3 % (42.2-75.2); PLT 279 X1000 (130-400); RBC 4.46 XMIL (4.2-5.4)
[2016-11-24] MEDS ORDERED: NS 500 ML IV ONE (03:24)
[2016-11-24 03:48] LABS: AGAP 13; ALBUMIN 3.5 g/dL (3.5-5.0); ALKALINE PHOSPHATASE 79 U/L (32-104); BUN 9 mg/dL (8-22); CALCIUM 8.8 mg/dL (8.8-10.2); CHLORIDE 102 mmol/L (98-107); COSMO 278; GOT 18 U/L (10-30); GPT 14 U/L (10-36); POTASSIUM 3.8 mmol/L (3.5-5.1); SODIUM 140 mmol/L (136-145); TCO2 25 mmol/L (25-35); TOTAL BILIRUBIN 0.75 mg/dL (0.20-1.00); TOTAL PROTEIN 7.1 g/dL (6.3-8.3)
[2016-11-24] MEDS: ZOFRAN IV PRN ×4 (03:55→19:58)
[2016-11-24] MEDS: APRESOLINE IV SCH ×4 (03:59→23:30)
[2016-11-24] MEDS ORDERED: LOPRESSOR PO ONE (04:40)
--- NOTE | 2016-11-24 05:38 | EKG Report ---
Test Performed on : 11/24/2016 02:31:15 AM Test Reason : Tachycardia Blood Pressure : / mmHG Vent. Rate : 152 BPM Atrial Rate : 152 BPM P-R Int : 212 ms QRS Dur : 070 ms QT Int : 290 ms P-R-T Axes : 070 034 250 degrees QTc Int : 461 ms Sinus tachycardia. with 1st degree AV block. ST \T\ T wave abnormality, consider inferior ischemia ST \T\ T wave abnormality, consider anterolateral ischemia Abnormal ECG When compared with ECG of 18-NOV-2015 12:00, [place] interval has increased Vent. rate has increased BY [address] now depressed in Lateral leads T wave inversion now evident in Inferior leads T wave inversion now evident in Anterolateral leads Confirmed by Garo GEORGE, Delmar Johnson ([id number]) on 11/24/2016 6:34:14 PM
--- NOTE | 2016-11-24 09:24 | Diag Imaging Result Document ---
PROCEDURE NAME: MRI ABDOMEN W/WO CONTRAST - 11/23/2016 MRI ABDOMEN WITH AND WITHOUT IV CONTRAST/MRCP: COMPARISON: No prior abdominal MRI is available for comparison. FINDINGS: Like a previous CT dated 11/22/2016, the common bile duct is dilated measuring up to 12 mm axially. There has been a previous cholecystectomy. No well-defined filling defect can be identified in the common bile duct; however, there is abrupt tapering of the duct as it reaches the ampulla. Near the expected region of the ampulla, there is a 7.2 mm somewhat nodular focus that can be seen on image 16 of series 12. This may simply represent the ampulla itself. It is slightly prominent, however. Correlation with ERCP should be considered to exclude an obstructing ampullary lesion. There is no obvious increased enhancement in this region, at least not more so than the surrounding duodenal mucosa. The pancreatic duct does not appear to be dilated. I can identify no obvious pancreatic mass. There is, perhaps, subtle increased fluid signal near the head of the pancreas suggesting mild edema, which can also be seen more clearly on the recent CT. There is a simple cyst at the lower tip of the liver measuring up to 2.7 cm. There appears to be an incidental Brannon hepatic lobe. There is evidence of prior Sujata fundoplication. The remainder of the abdominal viscera and the visualized portion of the GI tract is essentially unremarkable. IMPRESSION: 1. Dilated common bile duct as described with no well-defined filling defect but sharp tapering near the ampulla which appears somewhat nodular. Please see the above discussion. 2. Other incidental/nonacute findings detailed above.
[2016-11-24] MEDS: NS 1,000 ML IV SCH (12:35)
[2016-11-24] MEDS: MIRALAX PO SCH ×2 (13:37→20:17)
--- NOTE | 2016-11-24 14:58 | PROGRESS NOTE ---
DATE: 11/24/2016 SUBJECTIVE: Today, Ms. Bell refers to be doing fine. Continues to have this persistent nausea. OBJECTIVE: Vital signs: Blood pressure is 119/60, pulse of 79, respirations 20 , temperature 98.4 degrees. General: Ms. Bell is a 61-year-old female. She was in bed, not seemingly distressed. HEENT: Mucosa is pink and moist. Anicteric. Acyanotic. Neck: Supple. Chest: Good air entry bilaterally. No crepitations. No rhonchi. Cardiovascular: Regular rate and rhythm. Abdomen: Soft. Mildly tender in the right upper quadrant. There is an old anterior wall surgical scar. Bowel sounds are present. There is some dullness to percussion to the right lower abdomen. Extremities: No pedal edema. Central Nervous System: Patient is alert and oriented x4. There is no focal neurological deficit. LABORATORY DATA: Has been reviewed. CBC is completely normal. Chemistry is completely normal. IMAGING: An MRI of the abdomen has shown dilated common bile duct, sharp tapering near the ampulla, which appears somewhat nodular. ASSESSMENT: 1. Right upper quadrant pain, likely secondary to pancreatic process. MRI has shown some sharp tapering toward the ampulla of nodular characteristics. Not sure what it is , if it is an extrinsic process. The patient will need an ERCP for better visualization, diagnostic and possible therapeutic purposes. My understanding is that this procedure will be done by Dr. Torres on Tuesday. 2. History of sigmoid diverticulitis. This has improved. 3. Gastroparesis noted. 4. Dilated common bile duct. Etiology is unclear. Hopefully, the ERCP can give us some clarification. 5. Persistent nausea. I think this is all related to the periampullary/ pancreatic process. The Zofran is not controlling this. We will switch to Compazine since patient is allergic to promethazine. cc: Bar Mcfarland MD MTDD
[2016-11-24] MEDS: PROTONIX IV SCH (23:30)
--- NOTE | 2016-11-24 23:32 | PROGRESS NOTE ---
DATE: 11/24/2016 ADMITTING PHYSICIAN: Dr. Mcfarland. PRIMARY CARE DOCTOR: Dr. Zi Bob SUBJECTIVE: The patient is currently resting in bed. Her daughter at the bedside. She complains of right upper quadrant pain and nausea despite being on antiemetics. She is eating her lunch at this moment. She has a previous history of intermittent constipation. Her last bowel movement was documented as none in the last 2 days. She recently had a bout of diverticulitis in sigmoid colon which she is recovering from. She had an MRI done yesterday which was ordered by Dr. Torres and it showed biliary ductal dilation and questionable 7.6 mm lesion at the ampulla with irregularity and also there was mention of smooth shaping on distal common bile duct. Her liver enzymes are normal on admission, and Amylase, Lipase were also normal on admission. She denies any vomiting or vomiting blood. Denies any fever, rigors, chills. Vital signs: Temperature is 97.8, pulse rate of 148 and respiratory rate 16, blood pressure 119/60, saturating 98 % on room air. General Appearance: Moderately built, slightly mildly obese. Lying in bed, in no acute distress. HEENT: No pallor. No icterus. Pupils equal, react to light. Neck: Supple. Abdomen: Discomfort in the right upper quadrant. Bowel sounds. No rebound, no guarding. Discomfort in the epigastric and right upper quadrant. Extremities: No cyanosis, clubbing , edema. Neurologic: Alert, awake, oriented. LABS: Hemoglobin and hematocrit is 13.7, 41.8, white count of 5.2, platelet count of 279,000. MCV of 92.7, INR of 0.96. PT of 10.1, PTT of 26.6. Sodium 140, potassium 3.8, chloride 102, bicarb 25, anion gap of 13, BUN of 9, creatinine 0.7. Glucose of 90. Calcium is 8.8. Total bilirubin is 0.75, AST 18, ALT 14, alkaline phosphatase is 79. Total protein 7.1, albumin of 3.5, amylase of 48, lipase of 42, troponin less than 0.01. Magnesium 1.8. MRI of the abdomen described above. IMPRESSION: 1. Right upper quadrant pain and questionable common bile duct stricture versus ampullary lesion picked up on the reading of the CT scan and MRI. The patient's liver enzymes and amylase, lipase are normal on admission. She denies any previous history of pancreatic pathology. So in this regard we will schedule patient for ERCP likely on Tuesday morning with Dr. Torres. The procedure of ERCP explained to the patient among the risks, benefits, indications and alternatives. 2. Tachycardia. The patient we will need a workup as she has been tachycardic with a heart rate of 150 per the primary care team. 3. Diverticulitis sigmoid colon recently a month ago. 4. The patient will be on full liquid diet. Will avoid corn, nuts, and seeds in diet. We will avoid constipation. 5. Mild constipation. We will start on MiraLAX 17 g twice daily. 6. GI prophylaxis. Will continue Protonix IV once daily. 7. We will change her to a full liquid diet. Further recommendation to follow pending hospital course. I discussed plan with the patient and family at bedside. All questions answered. cc: MD Bar Avitia MD Dr. Alexander MTDD
[2016-11-25] MEDS: DILAUDID IV PRN ×6 (01:11→21:15)
[2016-11-25] MEDS: ZOFRAN IV PRN ×4 (04:09→18:06)
[2016-11-25] MEDS: APRESOLINE IV SCH ×4 (04:36→21:16)
[2016-11-25 06:32] LABS: AMYLASE 45 U/L (20-200); LIPASE 43 U/L (13-60)
[2016-11-25 06:38] LABS: AGAP 9; ALBUMIN 3.2 g/dL (3.5-5.0); ALKALINE PHOSPHATASE 70 U/L (32-104); BUN 6 mg/dL (8-22); CALCIUM 8.6 mg/dL (8.8-10.2); CHLORIDE 107 mmol/L (98-107); COSMO 276; GOT 19 U/L (10-30); GPT 14 U/L (10-36); POTASSIUM 3.7 mmol/L (3.5-5.1); SODIUM 140 mmol/L (136-145); TCO2 24 mmol/L (25-35); TOTAL BILIRUBIN 0.59 mg/dL (0.20-1.00); TOTAL PROTEIN 6.2 g/dL (6.3-8.3)
[2016-11-25] MEDS: MIRALAX PO SCH ×2 (09:43→21:16)
[2016-11-25] MEDS: KLOR-CON PO SCH ×2 (10:57→21:15)
[2016-11-25] MEDS: MAG-OX PO SCH ×2 (10:57→21:15)
[2016-11-25] MEDS: NS 1,000 ML IV SCH ×3 (10:58→21:16)
[2016-11-25] MEDS ORDERED: COMPAZINE IV PRN (11:57)
--- NOTE | 2016-11-25 13:31 | PROGRESS NOTE ---
DATE: 11/25/2016 SUBJECTIVE: The patient is currently feeling better. She had about 10-12 bowel movements. After using MiraLAX, her abdominal pain is improving. She does complain of discomfort in the right upper quadrant. Her labs this morning also showed normal amylase and lipase and normal liver enzymes. The MRI results are reviewed which showed evidence of possible lesion at the ampulla. Will evaluate it further with ERCP tomorrow. The patient denies any fevers, rigors, chills, and she denied noticing any blood in the stools or nausea or vomiting blood. OBJECTIVE: Vital signs: Temperature is 97.8, pulse rate 66, respiratory 18, blood pressure 109/55, satting 92% on room air. General Appearance: Moderate developed male lying in bed, in no acute distress. HEENT: Mild pallor. No icterus. Neck: Supple. Abdomen: Soft. Mild discomfort in right upper quadrant. No rebound. No guarding. Bowel sounds are noted. Extremities: No cyanosis, no clubbing or edema. Neurologic: Alert, awake and oriented. LABS: Hemoglobin and hematocrit is 13.7 and 41.8 white count of 5.2, platelet count of 279. Sodium 140, potassium 3.7, chloride 107, bicarbonate 24, anion gap 9, BUN of 6, creatinine 0.6, glucose of 81, calcium is 8.6. Total bilirubin is 0.59, AST 19, ALT 14, alkaline phosphatase 70. Total protein 6.2, albumin 3.2. Amylase of 40, lipase of 43. INR of 0.96. IMPRESSION: 1. Right upper quadrant pain with MRI showing tapering of the common bile duct towards the ampulla, which appears to be nodular. In this regard, the patient will be scheduled for endoscopic retrograde cholangiopancreatography tomorrow with Dr. Torres. The risks, benefits, indications and alternatives were discussed with the patient. 2. Sigmoid diverticulitis recently a month ago which has not improved. Continue to avoid corn, nuts and seeds. Avoid constipation. 3. Constipation. Continue MiraLAX once or twice daily and hold for more than 24 hours. 4. Gastroparesis. Continue to take small frequent meals on discharge. 5. Nausea which is improved today. We will continue to watch. PLAN: The above plan discussed with the patient and all questions answered. cc: MD Ricky Khan MD Dr. Alexander
--- NOTE | 2016-11-25 15:40 | PROGRESS NOTE ---
DATE: 11/25/2016 Today Ms. Bell refers to be doing fine. Still has some dull discomfort in the right upper quadrant. OBJECTIVE: Vitals: Blood pressure is 109/55, pulse of 63, respirations 18, temperature is 97.8 degrees. General Exam: Ms. Bell is a 61-year-old female. She was in bed. Not seeming in distress. HEENT: Mucosa is pink and moist. Anicteric. Acyanotic. Neck: Supple. Chest: Clear. Cardiovascular: Regular rate and rhythm. Abdomen: Soft. Mildly tender in the right upper quadrant. Extremities: No pedal edema. AIR DEFENSE SPECIALIST: Patient is alert and oriented x4. LABORATORY DATA: WBC is 5.22, hemoglobin is 13.7, platelet count of 279,000. This is from yesterday. Chemistry today: Sodium is 140, potassium is 3.7, chloride is 107, bicarb is 24. ASSESSMENT: 1. Right upper quadrant pain likely due to pancreatic process. The patient is pending an ERCP tomorrow. 2. History of sigmoid diverticulitis improved. 3. Gastroparesis improved. 4. Dilated common bile duct. The etiology is unclear. We will be pending the ERCP for more clarifications on that. 5. Persistent nausea improved with Compazine. 6. History of supraventricular tachycardia. We will put the patient on magnesium and potassium to make sure that we have them at the right range. In general, Ms. Bell will be pending ERCP tomorrow. We will keep her off any anticoagulation from [facility]. cc: Bar Mcfarland MD
[2016-11-25] MEDS: PROTONIX IV SCH (21:15)
[2016-11-25] MEDS: SODIUM CHLORIDE 0.9% INJ SCH (21:15)
[2016-11-26] MEDS: DILAUDID IV PRN ×3 (00:05→15:39)
[2016-11-26] MEDS: APRESOLINE IV SCH ×6 (03:33→23:27)
[2016-11-26] MEDS: ZOFRAN IV PRN (03:33)
[2016-11-26] MEDS: KLOR-CON PO SCH ×2 (10:24→21:55)
[2016-11-26] MEDS: MIRALAX PO SCH ×2 (10:25→21:55)
[2016-11-26] MEDS ORDERED: DIPRIVAN 1% ONE (12:05)
[2016-11-26] MEDS ORDERED: DIPRIVAN 1% 500 MG/50 ML BOTTLE ONE (12:06)
--- NOTE | 2016-11-26 12:28 | Diag Imaging Result Document ---
PROCEDURE NAME: ERCP-BILIARY AND PANCREATIC - 11/26/2016 ERCP, 8 IMAGES: FINDINGS: There is some non-opacification of the distal portion of the common bile duct by about a centimeter from the contrast seen in the duodenum. A stent was placed at the termination of the procedure by Dr. Ceja. IMPRESSION: Apparent stricture or mass in the distal common bile duct.
[2016-11-26] MEDS: MAG-OX PO SCH ×2 (12:47→21:56)
[2016-11-26] MEDS ORDERED: ANESTHESIA PB SET 88 IN 5742 ONE (13:08)
[2016-11-26] MEDS ORDERED: NS 1,000 ML ONE (13:08)
[2016-11-26] MEDS ORDERED: XYLOCAINE-MPF 2% ONE (13:08)
[2016-11-26] MEDS ORDERED: STERILE WATER INJ. ONE (13:08)
[2016-11-26] MEDS ORDERED: ZOFRAN ONE (13:08)
--- NOTE | 2016-11-26 14:25 | CONSULTATION ---
DATE OF CONSULTATION: 11/23/2016 REASON FOR CONSULTATION: Possible choledocholithiasis. HISTORY OF PRESENT ILLNESS: A 61-year-old lady who was recently discharged with diverticulitis, finished her full course of antibiotics and had a CT done which showed resolution of diverticulitis. However the patient's current symptoms are right upper quadrant abdominal pain with radiation to the back and she claims that this has been intermittent and the CT showed dilation of the common bile duct and Dr. Rojas felt that patient may have the common bile duct stone and patient had biliary pancreatitis. However the LFTs are normal. Amylase and lipase normal. No fever or chills. No jaundice. PAST MEDICAL HISTORY: Migraines, restless legs syndrome, gastroparesis, sigmoid diverticulitis, GERD, fatty liver disease. PAST SURGICAL HISTORY: Sujata fundoplication resulting in gastroparesis. Coronary angiogram which was normal. Cholecystectomy status post small-bowel obstruction. Exploratory laparotomy and lysis of adhesions. Hysterectomy and bilateral oophorectomy. HOME MEDICATION: Hydrochlorothiazide 12.5, Levaquin and Flagyl which were finished, Carafate 1 g p.o. b.i.d. ALLERGIES: 1. Reglan. 2. Phenergan. REVIEW OF SYSTEMS: Negative other than HPI. PHYSICAL EXAMINATION: Vital Signs: Pulse of 90, respiration 14, blood pressure 120/80. HEENT: No scleral icterus. No conjunctival pallor. Neck: Supple. Trachea midline. Heart: Normal first and second heart sounds. Lungs: Clear. Abdomen: Previous surgical scar. Mildly distended and minimally tender in the right upper quadrant and left lower quadrant. Bowel sounds present and normal. Extremities: No edema. Bilateral pulses normal. Neurological: Alert, oriented. No focal neurological deficit. DIAGNOSTIC DATA: Labs are normal, with normal LFTs, normal amylase and lipase, normal white count. CT scan as above. IMPRESSION AND PLAN: 1. Right upper quadrant abdominal pain, intermittent, associated with abnormal CT scan finding showing a dilated bile duct which is close to 12 mm. She is post cholecystectomy however this could still be from that. There is no stone seen but this deserves further evaluation. 2. Hypertension. 3. Recent diverticulitis. 4. Gastroparesis. Before doing ERCP I will do an MRCP to evaluate this further. The clinical picture is somewhat difficult to put together and after MRCP if there is any further indication we will proceed with ERCP. cc: Anjali Torres MD
--- NOTE | 2016-11-26 17:08 | PROGRESS NOTE ---
DATE: 11/26/2016 SUBJECTIVE: Today Ms. Bell referred to be doing fine. I saw her after she had an ERCP. OBJECTIVE: Vital Signs: Her vital signs were fine. Blood pressure 108/57, pulse 87, respirations 20, temperature is 98.6 degrees. General: Ms. Bell is a 61-year -old female. She is in bed, in no distress. HEENT: Mucosa is pink and moist. Anicteric. Acyanotic. Neck: Supple. Chest: Clear. Cardiovascular: Regular rate and rhythm. No murmurs, no rubs. Abdomen: Soft. Mildly tender in the right upper quadrant. Bowel sounds were present. Extremities: No pedal edema. Central Nervous System: The patient is alert and oriented x4. LABORATORY DATA: None for today. DIAGNOSTIC DATA: Cholangiogram, the ERCP x-ray shows apparent stricture or mass in the distal common bile duct, and there is there is a recently placed stent in the CBD. ASSESSMENT AND PLAN: 1. Right upper quadrant pain with endoscopic retrograde cholangiopancreatography just done. There is a possible distal common bile duct mass. I am still awaiting on the official report on the on the endoscopic retrograde cholangiopancreatography and also final recommendations from gastrointestinal. My understanding is that a stent has been placed. I am not sure if this was due to a stone or a mass. 2. History of sigmoid diverticulitis. This has improved. 3. History of supraventricular tachycardias noted. 4. Dilated common bile duct. Now imaging is showing possible mass in the distal common bile duct. We ill be waiting on the final recommendations. I think by tomorrow, depending on whatever the endoscopic retrograde cholangiopancreatography report stays and gastrointestinal recommendations, we might be able to discharge Ms. Bell. cc: Bar Mcfarland MD MTDD
[2016-11-26] MEDS: ADALAT CC PO SCH (19:02)
[2016-11-26] MEDS ORDERED: ZOFRAN ODT SL ONE (21:49)
[2016-11-26] MEDS: SODIUM CHLORIDE 0.9% INJ SCH (21:55)
[2016-11-26] MEDS: NORCO-10 PO PRN (22:01)
[2016-11-26] MEDS: ACTIGALL PO SCH (22:05)
[2016-11-26] MEDS: NS 1,000 ML IV SCH (22:56)
[2016-11-27] MEDS: APRESOLINE IV SCH ×3 (04:37→11:04)
[2016-11-27 05:15] VITALS: BP 141/71
[2016-11-27] MEDS: NORCO-10 PO PRN ×2 (06:23→11:12)
[2016-11-27] MEDS: BENTYL PO SCH ×2 (06:23→11:47)
[2016-11-27] MEDS: ZOFRAN ODT SL PRN ×2 (06:23→11:12)
[2016-11-27] MEDS ORDERED: PROTONIX PO SCH (07:00)
[2016-11-27] MEDS: ADALAT CC PO SCH (08:02)
[2016-11-27] MEDS: ACTIGALL PO SCH (08:02)
[2016-11-27] MEDS: MAG-OX PO SCH (08:02)
[2016-11-27] MEDS: KLOR-CON PO SCH (08:05)
[2016-11-27] MEDS: MIRALAX PO SCH (08:07)
[2016-11-27] MEDS: NS 1,000 ML IV SCH (11:04)
--- NOTE | 2016-11-27 17:18 | DISCHARGE SUMMARY ---
ADMISSION DATE: 11/22/2016 DISCHARGE DATE: 11/27/2016 DISPOSITION: Home. FOLLOWUP: 1. Dr. Torres. 2. Dr. Bob. CONSULTATION DURING THIS ADMISSION: GI was consulted. Patient was seen by Dr. Torres. INVASIVE PROCEDURES DONE DURING THIS ADMISSION: ERCP with stent placement was done by Dr. Torres. IMAGING STUDIES OF SIGNIFICANCE: A CT scan of the abdomen and pelvis was done which showed worsened biliary dilation and inflammatory changes around the head of the pancreas, marked improvement in sigmoid diverticulitis. Abdominal MRI did show dilated common bile duct. No well-defined filling defect but sharp tapering near the ampulla. ADMISSION DIAGNOSES: 1. Right upper quadrant pain, suspected pancreatitis. 2. Hypertension. DISCHARGE DIAGNOSES: 1. Sphincter of Oddi dysfunction. 2. Dilated common bile duct secondary to sphincter of Oddi type 1. 3. History of sigmoid diverticulitis improved. 4. History of supraventricular tachycardia. 5. Gastroesophageal reflux disease with fundoplication. 6. Gastroparesis. DISCHARGE MEDICATIONS: 1. Sucralfate 1 g b.i.d. 2. Hydrochlorothiazide 12.5 daily. 3. Pramipexole 0.5 p.o. at bedtime. 4. Ambien 10 mg at bedtime. 5. Bentyl 10 mg p.o. t.i.d. 6. Magnesium oxide 400 b.i.d. 7. Nifedipine ER 30 mg daily. 8. Pantoprazole 40 mg daily. 9. Polyethylene glycol. 10. Ursodiol 300 p.o. b.i.d. PRESENTING COMPLAINT: Abdominal pain. HISTORY OF PRESENTING COMPLAINT: Ms. Bell is a 61-year-old, female who was discharged from the hospital on 11/17/2016 for sigmoid diverticulitis. Patient was sent home on p.o. antibiotics and to follow up with Dr. Rojas. Apparently she went to see Dr. Rojas still complaining of right upper quadrant pain so she was advised to come in for admission for evaluation. HOSPITAL COURSE: The patient was evaluated and GI was consulted. Patient was seen by Dr. Torres. Imaging studies were done. There was a suspicion of CBD dilatation. Patient's enzymes, however, were never elevated. Liver enzymes, bilirubin and also pancreatic enzymes were completely normal. It was deemed necessary to do an ERCP which was successfully done by Dr. Torres. Official report is still not out but I saw in the chart that what he found was sphincter of Oddi dysfunction. Patient was subsequently started on nifedipine and ursodiol for that. A stent was also placed and the patient will follow up with Dr. Torres. Today she refers to be doing a whole lot better. She does not have any pain. No nausea, no vomiting. She is therefore going to be discharged home to follow up with Dr. Torres and with her PCP, Dr. Bob. PHYSICAL EXAMINATION ON DISCHARGE: Blood pressure is 141/71, pulse 81, respirations 18, temperature 98.1 degrees. Physical examination is completely unremarkable. DISPOSITION: Home. ACTIVITY: As tolerated. DIET: Low salt, low residue diet. FOLLOWUP: As aforementioned. DISCHARGE TIME: 37 minutes. cc: Bar Mcfarland MD
--- NOTE | 2016-12-03 13:05 | OPERATIVE NOTE ---
PROCEDURE DATE: 11/26/2016 DATE OF PROCEDURE: 11/26/2016. PROCEDURE: Endoscopic retrograde cholangiopancreatography, sphincterotomy and stent placement. PREOPERATIVE DIAGNOSIS: Rule out ampullary tumor. POSTOPERATIVE DIAGNOSIS: Hypertrophy of the ampulla. No obvious tumor. Smooth tapering of the common bile duct, stented. DESCRIPTION OF PROCEDURE IN DETAIL: After informed consent and adequate intravenous sedation by anesthesia, the scope was introduced to the esophagus, stomach and duodenum. The ampulla appeared slightly prominent. A cholangiogram was obtained. The patient does have a smooth tapering in the distal intrapapillary portion of the bile duct. At this point, a generous papillotomy was done. Again, I have not seen any tumor at this point. A 10-Trinidadian 5 cm stent was placed across the ampulla. We will keep that in place for a few weeks and, when we remove it, we will biopsy and brush this area. The patient tolerated the procedure well without any immediate complications. cc: Anjali Torres MD
== END 2016-11-27 15:11 | disposition home or self-care (01) ==
LOC: DIRADM → SUATTDRO 14:54 → OBSVTOIN 14:54 → 4N 15:01
PROVIDERS: ATTEND Internal Medicine
PROC: EN.ERCP (2016-11-26 11:02)